=== PATIENT | female | born 1960 | race American Indian/Alaskan Native ===

== ENCOUNTER 2018-02-06 14:28 | Emergency (ER) | payer SELFPAY ==
[2018-02-06] MEDS ORDERED: NACL 0.9% 500 ML 500 ML IV ONE (15:18)
[2018-02-06] MEDS ORDERED: TYLENOL PO ONE (15:19)
--- NOTE | 2018-02-06 15:26 | Emergency Department Report ---
HPI - General Chief Complaint: Pain General Time Seen by Provider: 02/06/18 14:58 - HPI HPI: 57-year-old female presents to the emergency department with a complaint of generalized body aches/pain, a mixed dry and productive cough, low-grade fever and feeling as if her face is "on fire." This is been going on for the past few days. The patient recently came back from a [place] that [place] [facility]. Patient says that the symptoms began a few days ago while she was on the plane. She denies any chest pain, shortness of breath, vomiting but does have some nausea. She denies any significant past medical history. The patient says that she has a history of recurrent bacterial pneumonia. At one point during her trip, she had some of these same symptoms and took a Z-Audi that she purchased in [facility] and that made everything resolved, but it has come back. ED Past Medical Hx - Past Medical History Previous Medical History?: Yes Hx Hypertension: Yes - Social History Smoking Status: Never Smoker Substance Use Type: None - Medications Home Medications: Home Medications Medication Instructions Recorded Confirmed Last Taken Type ALBUTEROL Inhaler(NF) [VENTOLIN 1 puff IH Q6H PRN #1 inha 02/06/18 Unknown Rx Inhaler(NF)] Oseltamivir [Tamiflu] 75 mg PO BID #10 cap 02/06/18 Unknown Rx ED Review of Systems ROS: Stated complaint: BODY ACHE,WEAKNESS Other details as noted in HPI Constitutional: chills, fever Eyes: denies: eye discharge, vision change ENT: denies: ear pain, throat pain Respiratory: cough. denies: wheezing Cardiovascular: edema. denies: chest pain Gastrointestinal: nausea. denies: abdominal pain, vomiting Genitourinary: denies: dysuria, discharge Musculoskeletal: arthralgia, myalgia. denies: joint swelling Skin: denies: rash, lesions Neurological: denies: headache, numbness Physical Exam - Physical Exam Vital Signs: Vital Signs 02/06/18 02/06/18 02/06/18 14:56 14:57 15:00 Temperature 99.9 F H Pulse Rate 88 86 87 Respiratory 18 19 17 Rate Blood Pressure 160/89 Blood Pressure 151/90 [Left] O2 Sat by Pulse 100 98 99 Oximetry 02/06/18 15:03 Temperature 99.9 F H Pulse Rate 86 Respiratory 19 Rate Blood Pressure 151/90 Blood Pressure 151/90 [Left] O2 Sat by Pulse 98 Oximetry Physical Exam: GENERAL: The patient is well-developed well-nourished. HEENT: Normocephalic. Atraumatic. Patient has moist mucous membranes. Oropharynx is clear without tonsillar hypertrophy, erythema or exudates. EYES: Extraocular motions are intact. Pupils are equal and reactive to light bilaterally. NECK: Supple. Trachea is midline. CHEST/LUNGS: Mild wheezing. No tachypnea or accessory muscle use. The patient has a productive sounding cough heard during examination. There is no respiratory distress noted. HEART/CARDIOVASCULAR: Regular. There is no tachycardia. There is no gallop rub or murmur. ABDOMEN: Abdomen is soft, nontender. Patient has normal bowel sounds. There is no abdominal distention. SKIN: Skin is warm and dry. NEURO: The patient is awake, alert, and oriented. The patient is cooperative. The patient has no focal neurologic deficits. The patient has normal speech. MUSCULOSKELETAL: There is no tenderness or deformity. There is no limitation range of motion. There is no evidence of acute injury. ED Course Vital Signs 02/06/18 02/06/18 02/06/18 14:56 14:57 15:00 Temperature 99.9 F H Pulse Rate 88 86 87 Respiratory 18 19 17 Rate Blood Pressure 160/89 Blood Pressure 151/90 [Left] O2 Sat by Pulse 100 98 99 Oximetry 02/06/18 15:03 Temperature 99.9 F H Pulse Rate 86 Respiratory 19 Rate Blood Pressure 151/90 Blood Pressure 151/90 [Left] O2 Sat by Pulse 98 Oximetry ED Medical Decision Making - Lab Data Result diagrams: 02/06/18 15:24 02/06/18 15:24 - Radiology Data Radiology results: image reviewed interpreted by me: Chest x-ray did not show any pleural effusion, focal consolidation, pneumothorax or obvious pneumonia. - Medical Decision Making Patient presents with a one to 2 day history of body aches, generalized weakness , low-grade fever, coughing. Chest x-ray does not show any pneumonia, pleural effusions, pneumothorax or focal consolidation or any other acute process. Patient's labs have been mostly unremarkable including no leukocytosis. She was given a breathing treatment, Tylenol, IV fluid resuscitation and then Toradol and upon reevaluation she is feeling improved. I later checked the patient for possible influenza and she came back positive for influenza A. Vital signs stable throughout her ED course. She will be discharged home to follow up with her primary care physician. She has been given a prescription for an albuterol inhaler and Tamiflu. She will return to the ER with any worsening of her symptoms or any acute distress. - Differential Diagnosis influenza, pneumonia, viral URI, bronchitis Critical Care Time: No Critical care attestation.: If time is entered above; I have spent that time in minutes in the direct care of this critically ill patient, excluding procedure time. ED Disposition Clinical Impression: Influenza A, Viral syndrome Disposition: TO HOME OR SELFCARE Is pt being admited?: No Condition: Stable Instructions: Influenza (ED), Viral Syndrome (ED) Additional Instructions: Please follow-up with your primary care physician in the next few days. Return to the emergency Department with any worsening of your symptoms or any acute distress. You can take Tylenol every 4 hours and ibuprofen every 6 hours, using weight-based dosing on the back of the bottle, as needed for fever or body aches. Do not share any food or fluids with anyone else. Make sure you do plenty of handwashing so you do not spread infection. Prescriptions: ALBUTEROL Inhaler(NF) [VENTOLIN Inhaler(NF)] 1 puff IH Q6H PRN #1 inha PRN Reason: Shortness Of Breath Oseltamivir [Tamiflu] 75 mg PO BID #10 cap Referrals: PRIMARY CARE, [Primary Care Provider] - 2-3 Days Time of Disposition: 18:36
[2018-02-06 15:40] LABS: Basophils % (Auto) 0.7 % (0.0-1.8); Eosinophils # (Auto) 0.1 K/mm3 (0.0-0.4); Eosinophils % (Auto) 0.8 % (0.0-4.3); Hematocrit 38.9 % (30.3-42.9); Hemoglobin 13.1 gm/dl (10.1-14.3); Lymphocytes # (Auto) 0.9 K/mm3 (1.2-5.4); Lymphocytes % (Auto) 12.7 % (13.4-35.0); Mean Corpuscular HGB Conc 34 % (30-34); Mean Corpuscular Hemoglobin 29 pg (28-32); Mean Corpuscular Volume 86 fl (79-97); Monocytes # (Auto) 0.8 K/mm3 (0.0-0.8); Monocytes % (Auto) 12.3 % (0.0-7.3); Platelet Count 221 K/mm3 (140-440); Red Blood Count 4.51 M/mm3 (3.65-5.03); Red Cell Distribution Width 14.5 % (13.2-15.2)
[2018-02-06 15:59] LABS: Alanine Aminotransferase 13 units/L (7-56); Albumin 4.1 g/dL (3.9-5); BUN/Creatinine Ratio 13; Blood Urea Nitrogen 8 mg/dL (7-17); Calcium 8.4 mg/dL (8.4-10.2); Hemolysis Index 71
[2018-02-06] MEDS ORDERED: ROBITUSSIN AC PO ONE (16:00)
[2018-02-06] MEDS ORDERED: DUONEB *Not for PRN Use IH ONE (16:01)
--- NOTE | 2018-02-06 16:11 | XRay Report ---
FINAL REPORT EXAM: XR CHEST 1V AP HISTORY: cough TECHNIQUE: Frontal chest radiograph. PRIORS: None. FINDINGS: The cardiomediastinal silhouette is normal. No focal consolidation. No pleural effusion. No pneumothorax. No acute osseous abnormality. IMPRESSION: No acute cardiopulmonary process.
[2018-02-06] MEDS ORDERED: TORADOL IV ONE (16:33)
[2018-02-06 19:06] VITALS: BP 116/68
== END 2018-02-06 19:05 | disposition home or self-care (01) ==
LOC: ED 14:28
DX: J09.X2 Influenza due to identified novel influenza A virus with other respiratory manifestations (principal); B34.9 Viral infection, unspecified; I10 Essential (primary) hypertension; Z88.2 Allergy status to sulfonamides
CPT/HCPCS: 36415; 71045; 80053; 82550; 84484; 85025; 85379; 87400; 94640; 96374; 99284; J1885; J7040